=== PATIENT | male | born 1970 | race Caucasian/White ===

== ENCOUNTER 2016-10-19 08:46 | Emergency (ER) | payer MEDICAID ==
[~2016-10-19] VITALS: Ht 175.3 cm; Wt 90.5 kg
[2016-10-19 08:49] VITALS: Ht 175.3 cm; Wt 90.5 kg
--- NOTE | 2016-10-19 09:57 | RADRPT ---
PROCEDURE: XR Chest. CLINICAL INDICATION: chest pain, abdominal pain TECHNIQUE: Single frontal view of the chest was obtained COMPARISON: None FINDINGS: The heart and mediastinum are within normal limits. The lungs are clear. There is no pleural effusion or pneumothorax. RPTAT: AA IMPRESSION: No acute disease. .Miguel Davenport MD, MD Date Time Electronically viewed and signed by .Miguel Davenport MD, on 10/19/2016 09:57 .S/
[2016-10-19] MEDS ORDERED: RANI150T9 PO (10:14)
[2016-10-19] MEDS ORDERED: ONDA4TAB14 PO (10:14)
--- NOTE | 2016-10-19 14:19 | ERD ---
ER Documentation Chief Complaint Date/Time DATE: 10/19/16 TIME: 14:13 Chief Complaint abdominal pain x 2 days HPI 45 yo male comes in with epigastric discomfort, nausea for the past 2 days. He describes more discomfort rather than pain, pointing to the epigastric and chest region. He states that he had a slight cough as well associated that was dry, without shortness of breath. He reports nausea associated, however no vomiting, and the nausea is worse after eating. He denies chest pain, abdominal pain. ROS All systems reviewed and are negative except as per history of present illness. Medications Home Meds Active Scripts Ondansetron (Ondansetron Odt) 4 Mg Tab.rapdis, 4 MG PO Q6H Y for NAUSEA AND/OR VOMITING, #10 TAB Prov:SIRISHA VELA PA-C 10/19/16 Ranitidine Hcl* (Zantac*) 150 Mg Tablet, 150 MG PO DAILY Y for EPIGASTRIC PAIN, #30 TAB Prov:SIRISHA VELA PA-C 10/19/16 Allergies Allergies: Coded Allergies: No Known Allergy (Unverified , 10/19/16) PMhx/Soc Medical and Surgical Hx: pt denies Medical Hx, pt denies Surgical Hx Hx Alcohol Use: Yes (SOCIALLY) Hx Substance Use: No Hx Tobacco Use: No Physical Exam Vitals Vital Signs Date Time Temp Pulse Resp B/P Pulse Ox O2 Delivery O2 Flow Rate FiO2 10/19/16 08:49 96.4 67 18 131/64 99 Physical Exam General: Well-developed, well-nourished. The patient appears in no acute distress. HEENT: Head is normocephalic, atraumatic. No scleral icterus. Pupils are equal , round, and reactive. Oral mucous membranes are moist. No pharyngeal erythema. Neck: Supple. Nontender. Lungs: Clear to auscultation. Normal air movement. Heart: Regular rate and rhythm. S1 and S2 are normal. No murmurs, gallops, or rubs. Abdomen: Soft, nontender, nondistended. Bowel sounds are normoactive. Extremities: No clubbing or cyanosis. Normal pulses. Moving extremities x 4. No weakness. Neurologic: Alert and oriented 3. No focal deficits. Skin: Normal turgor. No rash or lesions. Procedures/MDM 12-lead EKG(interpreted by supervising physician): Dr. Kat Rate/Rhythm: Normal Sinus Rhythm, rate of 59 QRS, ST, T-waves: No changes consistent w/ acute ischemia, no intervals, no dysrhythmias, no ectopy Impression: No evidence of ischemia or arrhythmia PROCEDURE: XR Chest. CLINICAL INDICATION: chest pain, abdominal pain TECHNIQUE: Single frontal view of the chest was obtained COMPARISON: None FINDINGS: The heart and mediastinum are within normal limits. The lungs are clear. There is no pleural effusion or pneumothorax. RPTAT: AA IMPRESSION: No acute disease. .Miguel Davenport MD, MD Date Time Electronically viewed and signed by .Miguel Davenport MD, MD on 10/19/2016 09: 57 MDM: 45-year-old male comes in with epigastric discomfort, with nausea worse after eating for the past 2 days. Patient had normal EKG, and chest x-ray was unremarkable. Acute coronary syndrome was considered however unlikely, he does not have any chest pain or shortness of breath. Patient does not have any prior cardiac history, is is non-smoker. Other differentials considered include pneumothorax, pneumonia, GERD, gastritis. States the nausea is worse after eating, patient will be trialed on ranitidine as well as Zofran for nausea symptoms. I doubt acute hepatobiliary process, also pancreatitis, upper GI bleed were all considered. Departure Diagnosis: Primary Impression: Abdominal pain Condition: Good Patient Instructions: Abdominal Pain, Gastritis (Adult) Additional Instructions: Llame al doctor MAANA y barbi flaquita MARICRUZ PARA DENTRO DE 1-2 TRAYLOR.Dgale a la secretaria que nosotros le instruimos hacer esta maricruz.Avise o llame si patel condicin se empeora antes de la maricruz. Regresa aqui si peor o no mejor. SIRISHA VELA PA-C Oct 19, 2016 14:19
== END 2016-10-19 10:19 | disposition home or self-care (01) ==
LOC: FTE 08:46
DX: R10.13 Epigastric pain (principal); R11.0 Nausea
CPT/HCPCS: 71010; 93005; Z7502

== ENCOUNTER 2017-02-08 09:56 | Emergency (ER) | payer MEDICAID ==
[~2017-02-08] VITALS: Wt 90.0 kg
[~2017-02-08 09:56] MED LIST: ONDA4TAB14 PO; RANI150T9 PO
[2017-02-08] MEDS ORDERED: DIAZ-90 PO (10:34)
[2017-02-08] MEDS ORDERED: IBUP800T25 PO (10:34)
[2017-02-08] MEDS ORDERED: KETOROLAC 30 MG INJ IM STA (10:39)
--- NOTE | 2017-02-08 11:12 | ERD ---
ER Documentation Chief Complaint Date/Time DATE: 02/08/17 TIME: 11:10 Chief Complaint LOW BACK PAIN, ONSET 5 DAYS, NO INJURY HPI Very pleasant 46-year-old male. Moldovan speaking. Physical Sciences Professor use. He describes 10 days of lumbar back pain that is paraspinal, moderate, worse with movement. He states intermittent pain that is alleviated with NSAIDs. The patient describes the pain was initiated when he was pushing heavy materials while at work. He denies any bowel or bladder incontinence and/or retention. No fevers or chills, no dysuria urgency or frequency. ROS All systems reviewed and are negative except as per history of present illness. Medications Home Meds Active Scripts Diazepam* (Valium*) 5 Mg Tablet, 5 MG PO Q8 Y for MUSCLE SPASMS, #12 TAB Prov:KUSHAL ROSA MD 02/08/17 Ibuprofen* (Motrin*) 800 Mg Tab, 800 MG PO Q6H Y for PAIN AND OR ELEVATED TEMP, #30 TAB Prov:KUSHAL ROSA MD 02/08/17 Ondansetron (Ondansetron Odt) 4 Mg Tab.rapdis, 4 MG PO Q6H Y for NAUSEA AND/OR VOMITING, #10 TAB Prov:SIRISHA VELA PA-C 10/19/16 Ranitidine Hcl* (Zantac*) 150 Mg Tablet, 150 MG PO DAILY Y for EPIGASTRIC PAIN, #30 TAB Prov:SIRISHA VELA PA-C 10/19/16 Allergies Allergies: Coded Allergies: No Known Allergy (Unverified , 10/19/16) PMhx/Soc Medical and Surgical Hx: pt denies Medical Hx, pt denies Surgical Hx Hx Alcohol Use: Yes (SOCIALLY) Hx Substance Use: No Hx Tobacco Use: No FmHx Family History: No diabetes Physical Exam Vitals Vital Signs Date Time Temp Pulse Resp B/P Pulse Ox O2 Delivery O2 Flow Rate FiO2 02/08/17 09:58 97.4 66 17 137/90 98 Physical Exam General: Well developed, well nourished, no acute distress Head: Normocephalic, atraumatic. Eyes: EOM intact ENT: Moist mucous membranes Neck: Full ROM Respiratory: No respiratory distress Cardiovascular: Good capillary refill Abdominal: Nondistended Back: No midline tenderness deformities or step-offs, reproducible soft tissue paraspinal lumbar tenderness. : Deferred MSK: No edema, no unilateral swelling, 5/5 strength Neurologic: Alert and oriented, moving all extremities, normal speech, steady gait Skin: No rash Psych: Normal mood Results 24 hrs Current Medications Medications (Trade) Dose Ordered Sig/Mignon Route PRN Reason Start Time Stop Time Status Last Admin Dose Admin Ketorolac Tromethamine (Toradol) 30 mg ONCE STAT IM 02/08/17 10:39 02/08/17 10:40 DC 02/08/17 10:44 Procedures/MDM The patient's low back pain is unlikely related to serious etiology. The patient exhibits no clinical signs or symptoms and has no history or risk factors to suggest cauda equina, cord compression, epidural abscess, epidural hematoma, acute aortic aneurysm or dissection. Symptoms are very consistent and characteristic of acute or subacute lumbar strain. No signs or symptoms of cauda equina as described above. No evidence of nephrolithiasis or acute intra-abdominal process. Patient given Toradol. Range of motion exercises advised. Light lifting at work advised. No for work was provided. The patient can be safely discharged home. No indication for imaging given the risk of radiation outweigh the benefits. Outpatient MRI imaging may be necessary if symptoms persist for several weeks. We discussed follow up with the patient's primary care doctor within 24 to 48 hours as needed. We also discussed return to the emergency room for worsening symptoms or worsening condition. Outpatient referral: [None required] Discharge Medications: Motrin, Valium Departure Diagnosis: Primary Impression: Lumbar strain Encounter type: initial encounter Qualified Code: S39.012A - Lumbar strain, initial encounter Condition: Good Patient Instructions: Back Exercises: Back Press Referrals: [facility] Usted se cueto hecho un examen mdico de control que le indica que no est en flaquita condicin que requiera tratamiento urgente en el Departamento de Emergencia. Un estudio ms profundo y el tratamiento de patel condicin pueden esperar sin ningn riesgo hasta que usted sea atendida/o en el consultorio de patel mdico o flaquita cl marita. Es responsabilidad suya arreglar flaquita maricruz para el seguimiento del maurice. MANEJO DE CONDICIONES NO URGENTES EN EL FUTURO 1) Si usted tiene un mdico de atencin primaria: Usted debera llamar a patel mdico de atencin primaria antes de venir al departamento de emergencia. Despus de las horas de consultorio, patel doctor o patel asociado/a est disponible por telfono. El mdico o enfermero de maxine en el servicio telefnico puede asesorarle por maxi medio para atender el problema, o maurice contrario se puede programar flaquita maricruz. 2) Si usted no tiene un mdico de atencin primaria: Llame al mdico o clnica de referencia que aparece abajo sharifa las horas de consultorio para hacer flaquita maricruz para que le vean. CLINICAS: [facility] [phone] [facility] [phone] [address] [facility] [phone] [address] [facility]. [facility] [phone] [address] [facility] [facility] [phone] [address] [facility] [facility] [phone] [address] [facility]. [facility] () Usted se cueto hecho un examen mdico de control que le indica que no est en flaquita condicin que requiera tratamiento urgente en el Departamento de Emergencia. Un estudio ms profundo y el tratamiento de patel condicin pueden esperar sin ningn riesgo hasta que usted sea atendida/o en el consultorio de patel mdico o flaquita cl marita. Es responsabilidad suya arreglar flaquita maricruz para el seguimiento del maurice. MANEJO DE CONDICIONES NO URGENTES EN EL FUTURO 1) Si usted tiene un mdico de atencin primaria: Usted debera llamar a patel mdico de atencin primaria antes de venir al departamento de emergencia. Despus de las horas de consultorio, patel doctor o patel asociado/a est disponible por telfono. El mdico o enfermero de maxine en el servicio telefnico puede asesorarle por maxi medio para atender el problema, o maurice contrario se puede programar flaquita maricruz. 2) Si usted no tiene un mdico de atencin primaria: Llame al mdico o condado institucions de referencia que aparece abajo sharifa las horas de consultorio para hacer flaquita maricruz para que le vean. SI USTED NO PUEDE PAGAR PARA ENZO UN MEDICO puede ir a: [facility] [address] [place] [address] [facility] [address] [place] [address] [facility] [address] [place] [address] PARA [facility]AN [facility] [address] [place], [place] [id number] Additional Instructions: Llame al doctor nombrado abajo (Referral Sources) MAANA y barbi flaquita MARICRUZ PARA DENTRO DE FLAQUITA SEMANA. Dgale a la secretaria que nosotros le instruimos hacer esta maricruz.Avise o llame si patel condicin se empeora antes de la maricruz. KUSHAL ROSA MD Feb 08, 2017 11:12
== END 2017-02-08 10:51 | disposition home or self-care (01) ==
LOC: FTE 09:56
DX: S39.012A Strain of muscle, fascia and tendon of lower back, initial encounter (principal); X50.9XXA Other and unspecified overexertion or strenuous movements or postures, initial encounter; Y92.89 Other specified places as the place of occurrence of the external cause
CPT/HCPCS: 96372; J1885; Z7502

== ENCOUNTER 2018-07-03 19:44 | Emergency (ER) | payer MEDICAID ==
[~2018-07-03] VITALS: Ht 172.7 cm; Wt 90.5 kg
[~2018-07-03 19:44] MED LIST changes: +DIAZ5TAB PO; +IBUP800T48 PO; +RANI150T35 PO; -RANI150T9 PO
[2018-07-03 20:17] VITALS: BP 160/84; PULSE 72; RESP 20; Ht 172.7 cm; Wt 90.5 kg
[2018-07-03] MEDS ORDERED: BENZ-6 PO (23:10)
[2018-07-03] MEDS ORDERED: ALBU18HF INHALATION (23:10)
[2018-07-03] MEDS ORDERED: FLUT9.9S NASAL (23:10)
--- NOTE | 2018-07-03 23:14 | ERD ---
ER Documentation Chief Complaint Chief Complaint cough w/ sob x2 days HPI Patient is a 47-year-old male with no medical problems who presents with shortness of breath. The patient says "I cannot breathe". He said the symptoms started 1 week ago but today it was worse. He has had a dry cough without phlegm. He has had no fevers. He has nasal congestion bilaterally. He has eye redness bilaterally. He tried Robitussin. Upon review of old medical records this is the patient's third visit to the ER since 2017. He does not currently have a primary doctor. ROS All systems reviewed and are negative except as per history of present illness. Medications Home Meds Active Scripts Benzonatate* (Tessalon Perle*) 100 Mg Capsule, 100 MG PO Q8H PRN for COUGH, #30 CAP Prov:ARIANNE URIBE MD 07/03/18 Fluticasone Propionate (Flonase Allergy Relief) 9.9 Ml [place].susp, 1 SPRAY NASAL DAILY, #1 BOTTLE TO EACH NOSTRIL Prov:ARIANNE URIBE MD 07/03/18 Albuterol Sulfate* (Ventolin HFA*) 18 Gm Hfa.aer.ad, 2 PUFF INHALATION Q4H, #1 INHALER Prov:ARIANNE URIBE MD 07/03/18 Diazepam* (Valium*) 5 Mg Tablet, 5 MG PO Q8 PRN for MUSCLE SPASMS, #12 TAB Prov:KUSHAL ROSA MD 02/08/17 Ibuprofen* (Motrin*) 800 Mg Tab, 800 MG PO Q6H PRN for PAIN AND OR ELEVATED TEMP, #30 TAB Prov:KUSHAL ROSA MD 02/08/17 Ondansetron (Ondansetron Odt) 4 Mg Tab.rapdis, 4 MG PO Q6H PRN for NAUSEA AND/OR VOMITING, #10 TAB Prov:SIRISHA VELA PA-C 10/19/16 Ranitidine Hcl* (Zantac*) 150 Mg Tablet, 150 MG PO DAILY PRN for EPIGASTRIC PAIN, #30 TAB Prov:SIRISHA VELA PA-C 10/19/16 Allergies Allergies: Coded Allergies: No Known Allergy (Unverified , 07/03/18) PMhx/Soc Medical and Surgical Hx: pt denies Medical Hx, pt denies Surgical Hx Hx Alcohol Use: Yes (rarely) Hx Substance Use: No Hx Tobacco Use: No Smoking Status: Never smoker FmHx Family History: diabetes Physical Exam Vitals Vital Signs Date Temp Pulse Resp B/P (MAP) Pulse Ox O2 O2 Flow FiO2 Time Delivery Rate 07/03/18 97.9 72 20 160/84 96 20:17 (109) Physical Exam Const: No acute distress Head: Atraumatic Eyes: Normal Conjunctiva ENT: Normal External Ears, Nose and Mouth. Neck: Full range of motion. No meningismus. Resp: Clear to auscultation bilaterally Cardio: Regular rate and rhythm, no murmurs Abd: Soft, non tender, non distended. Normal bowel sounds Skin: No petechiae or rashes Back: No midline or flank tenderness Ext: No cyanosis, or edema Neur: Awake and alert Psych: Anxious Procedures/MDM Chest x-ray is pending. EKG read by me: Rate/Rhythm: Sinus bradycardia Intervals: Normal Impression: Bradycardia without ischemia Patient is a 47-year-old male with no medical problems who presents with shortness of breath. The patient has no cardiac risk factors at this time. EKG shows no signs of ischemia. Chest x-ray is pending. If the chest x-ray is negative for pneumonia or pneumothorax and believe outpatient management would be appropriate with a prescription for Tessalon, Ventolin, and Flonase. The patient will need to follow-up with the local clinics as he needs a primary doctor. He should follow-up within 24 hours. He can return sooner for any worsening symptoms. At this point I doubt acute coronary syndrome, pneumonia, pneumothorax, pulmonary embolism, or aortic dissection. Departure Diagnosis: Primary Impression: SOB (shortness of breath) Additional Impression: Cough Condition: Fair Patient Instructions: Dyspnea Referrals: [facility] Usted se cueto hecho un examen mdico de control que le indica que no est en flaquita condicin que requiera tratamiento urgente en el Departamento de Emergencia. Un estudio ms profundo y el tratamiento de patel condicin pueden esperar sin ningn riesgo hasta que usted sea atendida/o en el consultorio de patel mdico o flaquita clnica. Es responsabilidad suya arreglar flaquita maricruz para el seguimiento del maurice. MANEJO DE CONDICIONES NO URGENTES EN EL FUTURO 1) Si usted tiene un mdico de atencin primaria: Usted debera llamar a patel mdico de atencin primaria antes de venir al departamento de emergencia. Despus de las horas de consultorio, patel doctor o patel asociado/a est disponible por telfono. El mdico o enfermero de maxine en el servicio telefnico puede asesorarle por maxi medio para atender el problema, o maurice contrario se puede programar flaquita maricruz. 2) Si usted no tiene un mdico de atencin primaria: Llame al mdico o clnica de referencia que aparece abajo sharifa las horas de consultorio para hacer flaquita maricruz para que le vean. CLINICAS: [facility] [phone] [facility] [address] [facility] [phone] [facility] [phone] [facility] [phone] [address] [facility]. [facility] [phone] [address] [facility] [phone] [address] Additional Instructions: Llame al doctor MAANA y barbi flaquita MARICRUZ PARA DENTRO DE 1-2 TRAYLOR.Dgale a la secretaria que nosotros le instruimos hacer esta maricruz.Avise o llame si patel condicin se empeora antes de la maricruz. Regresa aqui si peor o no mejor. ARIANNE URIBE MD Jul 03, 2018 23:14
== END 2018-07-04 01:36 | disposition home or self-care (01) ==
LOC: FTE 19:44
DX: R06.02 Shortness of breath (principal)
CPT/HCPCS: 71045; 93005; Z7502

== ENCOUNTER 2018-07-22 15:59 | Emergency (ER) | payer MEDICAID ==
[~2018-07-22] VITALS: Ht 167.6 cm; Wt 89.0 kg
[~2018-07-22 15:59] MED LIST changes: +ALBU18HF INHALATION; +BENZ-6 PO; +FLUT9.9S NASAL
[2018-07-22 16:07] VITALS: BP 147/80; PULSE 73; RESP 20; Ht 167.6 cm; Wt 89.0 kg
[2018-07-22] MEDS ORDERED: ALBUTEROL 0.083% (NEB) 2.5 MG/3 ML AMP HHN STA (19:19)
[2018-07-22] MEDS ORDERED: predniSONE 20 MG TAB PO ONE (19:30)
[2018-07-22] MEDS ORDERED: ALBU18HF INHALATION (20:05)
[2018-07-22] MEDS ORDERED: AZIT250T PO (20:05)
[2018-07-22] MEDS ORDERED: PRED20TA PO (20:05)
--- NOTE | 2018-07-22 20:08 | ERD ---
ER Documentation Chief Complaint Chief Complaint Complains of a cough, colds and flu symptoms x 3 days HPI 47-year-old male presents with productive cough for last 2 weeks. 2 weeks ago he had a x-ray without pneumonia. He was given Ventolin and Tessalon Perles. He has persistent productive coughing and wheezing. He has no measured fevers. ROS All systems reviewed and are negative except as per history of present illness. Medications Home Meds Active Scripts Albuterol Sulfate* (Ventolin HFA*) 18 Gm Hfa.aer.ad, 2 PUFF INHALATION Q4H, #1 INHALER Prov:SONYA MONACO MD 07/22/18 Azithromycin* (Zithromax*) 250 Mg Tablet, 250 MG PO .ZPACK DIRECTED, #6 TAB TAKE 500 MG (2 TABS) THE FIRST DAY THEN 250 MG (1 TAB) DAYS 2-5 Prov:SONYA MONACO MD 07/22/18 Prednisone* (Prednisone*) 20 Mg Tab, 40 MG PO DAILY for 4 Days, TAB Start July 23, 2018 Prov:SONYA MONACO MD 07/22/18 Benzonatate* (Tessalon Perle*) 100 Mg Capsule, 100 MG PO Q8H PRN for COUGH, #30 CAP Prov:ARIANNE URIBE MD 07/03/18 Fluticasone Propionate (Flonase Allergy Relief) 9.9 Ml [place].susp, 1 SPRAY NASAL DAILY, #1 BOTTLE TO EACH NOSTRIL Prov:ARIANNE URIBE MD 07/03/18 Albuterol Sulfate* (Ventolin HFA*) 18 Gm Hfa.aer.ad, 2 PUFF INHALATION Q4H, #1 INHALER Prov:ARIANNE URIBE MD 07/03/18 Diazepam* (Valium*) 5 Mg Tablet, 5 MG PO Q8 PRN for MUSCLE SPASMS, #12 TAB Prov:KUSHAL ROSA MD 02/08/17 Ibuprofen* (Motrin*) 800 Mg Tab, 800 MG PO Q6H PRN for PAIN AND OR ELEVATED TEMP, #30 TAB Prov:KUSHAL ROSA MD 02/08/17 Ondansetron (Ondansetron Odt) 4 Mg Tab.rapdis, 4 MG PO Q6H PRN for NAUSEA AND/OR VOMITING, #10 TAB Prov:SIRISHA VELA PA-C 10/19/16 Ranitidine Hcl* (Zantac*) 150 Mg Tablet, 150 MG PO DAILY PRN for EPIGASTRIC PAIN, #30 TAB Prov:SIRISHA VELA PA-C 10/19/16 Allergies Allergies: Coded Allergies: No Known Allergy (Unverified , 07/03/18) PMhx/Soc Medical and Surgical Hx: pt denies Medical Hx, pt denies Surgical Hx Hx Respiratory Disorders: Yes (COUGH, SOB X'S 3 WEEKS) Hx Alcohol Use: Yes (rarely) Hx Substance Use: No Hx Tobacco Use: No Smoking Status: Never smoker FmHx Family History: No diabetes, No coronary disease, No other Physical Exam Vitals Vital Signs Date Temp Pulse Resp B/P (MAP) Pulse Ox O2 O2 Flow FiO2 Time Delivery Rate 07/22/18 61 18 96 21 19:30 07/22/18 97.7 73 20 147/80 96 16:07 (102) Physical Exam Const: No acute distress Head: Atraumatic Eyes: Normal Conjunctiva ENT: Normal External Ears, Nose and Mouth. Neck: Full range of motion. No meningismus. Resp: Clear to auscultation bilaterally coarse cough with wheezing and rhonchi. No retractions. No rales appreciated. Cardio: Regular rate and rhythm, no murmurs Abd: Soft, non tender, non distended. Normal bowel sounds Skin: No petechiae or rashes Back: No midline or flank tenderness Ext: No cyanosis, or edema Neur: Awake and alert Psych: Normal Mood and Affect Results 24 hrs Current Medications Medications Dose Sig/Mignon Start Time Status Last (Trade) Ordered Route PRN Stop Time Admin Dose Reason Admin Prednisone 60 mg ONCE ONCE 07/22/18 DC 07/22/18 (Prednisone) PO 19:30 19:26 07/22/18 19:31 Albuterol 5 mg ONCE STAT 07/22/18 DC 07/22/18 (Proventil HHN 19:19 19:30 0.083% (Neb)) 07/22/18 19:20 Procedures/MDM She was given albuterol treatment x1, and prednisone 60 mg by mouth. Patient improved breath sounds on serial exam. Patient resents with 2-week history of bronchitis and productive cough and wheezing. Given the duration and patient requested we treated with Zithromax, prednisone, continuation of Ventolin, primary care follow-up and return precautions. X-rays deferred given no evidence of hypoxemia and no signs of pneumonia on exam. The patient was stable with no new complaints during the ER course. Clinically, there is no current evidence to suggest meningitis, sepsis, acute abdomen, pneumonia, stroke, acute coronary syndrome, pulmonary embolism, aortic dissection or any other emergent condition appearing to require further evaluation or hospitalization. Patient counseled regarding my diagnostic impression and care plan. Prior to discharge all questions answered. Pt agrees with treatment plan and understands strict return precautions. Pt is instructed to follow up with primary care provider within 24-48 hours. Precautionary instructions provided including instructions to return to the ER if not improving or for any worsening or changing symptoms or concerns. Departure Diagnosis: Primary Impression: Cough Condition: Stable Patient Instructions: Bronchitis With Wheezing (Adult) Additional Instructions: Cheque otro vez con patel doctor primario en el proximo esqueda or regresa para mas o nueva simptomas. SONYA MONACO MD Jul 22, 2018 20:07
== END 2018-07-22 20:18 | disposition home or self-care (01) ==
LOC: E/R 15:59
DX: R05 Cough (principal)
CPT/HCPCS: 94664; J7512; Z7502; Z7610